=== PATIENT | female | born 1985 | race Caucasian/White ===

== ENCOUNTER 2020-10-25 17:59 | Emergency (ER) | payer OTHER ==
[~2020-10-25] VITALS: Ht 154.9 cm; Wt 83.7 kg
[2020-10-25] MEDS ORDERED: PROZAC 10 MG CA10 MG PO (18:30)
[2020-10-25] MEDS ORDERED: SYNTHROID75 MC1 PO (18:30)
[2020-10-25 18:50] VITALS: BP 112/80
--- NOTE | 2020-10-26 09:25 | EKG ---
[place] [address] ELECTROCARDIOGRAM REPORT Name: SEVERO GLEASON Room: [facility]#: [id number] Admission: 10/25/20 Attend Phys: Discharge: 10/25/20 Date of : 89 Date of Service: 10/25/201836 Report #: [id number] THIS REPORT FOR: //name// [facility] ED Test Date: 2020-10-25 Test Time: 18:37:37 Pat Name: SEVERO GLEASON Department: Room: Gender: Gas Tester: HUGHES : 1985 Requested By: Jesus Beckman Order Number: [id number] MD: Bryant Lopez Measurements Intervals [place] Rate: 78 P: 40 IN: 171 QRS: 24 QRSD: 101 T: 4 QT: 391 QTc: 446 Interpretive Statements Sinus rhythm Low voltage, precordial leads Borderline T wave abnormalities No previous ECG available for comparison Electronically Signed On 10-26-2020 9:24:49 CDT by Bryant Lopez [email or web address] <ELECTRONICALLY SIGNED> By: Bryant Lopez MD, [facility] 10/26/20923 36 36 Bryant Lopez MD, [facility] /EPI
== END 2020-10-25 18:50 | disposition short-term general hospital (02) ==
LOC: M.ERS 17:59
DX: I63.9 Cerebral infarction, unspecified (principal); E03.9 Hypothyroidism, unspecified; F32.9 Major depressive disorder, single episode, unspecified; Z79.899 Other long term (current) drug therapy